=== PATIENT | male | born 1950 | race Caucasian/White ===

== ENCOUNTER → 2024-04-20 | Outpatient (CLI) | payer MEDICARE, OTHER ==
[~2024-04-20] MED LIST: ALBU8.5H INH; ASPI81TA26 PO; ATOR80TA59 PO; BUDE10.2 INH; BUPR1TAB52 PO; CHLO125TA PO; DULO1CAP5 PO; FERR324T2 PO; IRBE150T27 PO; KLON0.5T8 PO; META28.32 PO; METF500T13 PO; OMEG10002 PO; PANT40TA29 PO; TAMS1CAP17 PO; VITA100093 PO
== END ==
LOC: M PLARAD 09:34
PROVIDERS: ATTEND Specialist
DX: C7A.8 Other malignant neuroendocrine tumors (principal)
CPT/HCPCS: 78815; A9552